=== PATIENT | female | born 1990 | race Two or more races ===

== ENCOUNTER 2022-07-31 23:18 | Emergency (ER) | payer OTHER ==
[~2022-07-31] VITALS: Ht 162.6 cm; Wt 56.7 kg
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
[2022-07-31] MEDS ORDERED: KETO10TA2 PO (23:31)
[2022-07-31 23:56] LABS: BASOPHILS # (AUTO) 0.1 K/uL (0.0-0.2); BASOPHILS % (AUTO) 1.1 % (0.0-2.0); EOSINOPHILS % (AUTO) 2.7 % (0.0-6.0); HEMATOCRIT 43 % (33-45); HEMOGLOBIN 14.2 g/dL (11.5-14.8); LYMPHOCYTES # (AUTO) 1.8 K/uL (0.8-4.8); LYMPHOCYTES % (AUTO) 34.1 % (20.0-44.0); MEAN CORPUSCULAR HGB CONC 33 g/dl (31.0-36.0); MEAN CORPUSCULAR VOLUME 98 fL (82-100); MONOCYTES # (AUTO) 0.4 K/uL (0.1-1.30); MONOCYTES % (AUTO) 6.9 % (2.0-12.0); NEUTROPHILS # (AUTO) 2.8 K/uL (1.8-8.9); NEUTROPHILS % (AUTO) 55.2 % (43.0-81.0); PLATELET COUNT (AUTO) 225 K/uL (150-450); RED BLOOD CELL COUNT(AUTO) 4.37 MIL/uL (4.0-5.2); WHITE BLOOD COUNT (AUTO) 5.1 K/uL (4.3-11.0)
[2022-07-31] MEDS ORDERED: CT SWABBABLE VALVE TRANS SET 1 EA INFUS.SET MC ONE (23:56)
[2022-07-31] MEDS ORDERED: IOHEXOL-300 100 ML VIAL IV ONE (23:56)
[2022-07-31] MEDS ORDERED: IV NS 0.9% 250 ML IV ONE (23:56)
[2022-08-01 00:05] LABS: CALCIUM, SERUM 9.1 mg/dL (8.5-10.1); CREATININE 0.8 mg/dL (0.6-1.3); POTASSIUM 3.7 mmol/L (3.5-5.1)
[2022-08-01] MEDS ORDERED: methylPREDNISolone SOD SUCC 125 MG/2ML VIAL IV ONE (00:30)
[2022-08-01] MEDS ORDERED: diphenhydrAMINE HCL 50 MG/ML VIAL IV ONE (00:30)
[2022-08-01] MEDS ORDERED: diphenhydrAMINE HCL 50 MG/ML VIAL ONE (00:32)
[2022-08-01] MEDS ORDERED: methylPREDNISolone SOD SUCC 125 MG/2ML VIAL ONE (00:32)
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
[2022-08-01 02:42] VITALS: BP 128/84
--- NOTE | 2022-08-01 02:42 | NUR ---
Patient discharged to home in stable condition. Written and verbal after care instructions given. Patient verbalizes understanding of instruction. Pt ambulatory with a steady gait
== END 2022-08-01 02:43 | disposition home or self-care (01) ==
LOC: ER 23:21
DX: R10.31 Right lower quadrant pain (principal); Z79.899 Other long term (current) drug therapy; V89.2XXA Person injured in unspecified motor-vehicle accident, traffic, initial encounter; Y93.89 Activity, other specified; Y92.89 Other specified places as the place of occurrence of the external cause; Y99.8 Other external cause status
CPT/HCPCS: 99285; 74177; 85025; 80048; 36415; 96374; 96375; J7050; Q9967; J1200; J2930